=== PATIENT | female | born 1945 | race Hispanic/Latino ===

== ENCOUNTER 2022-04-22 11:52 | Outpatient (CLI) | payer MEDICARE | END 2022-04-22 11:53 | disposition home or self-care (01) | LOC: BICRAD 11:52 | PROVIDERS: ATTEND Student in an Organized Health Care Education/Training Program | DX: M79.89 Other specified soft tissue disorders (principal); M79.671 Pain in right foot; M19.071 Primary osteoarthritis, right ankle and foot; M77.9 Enthesopathy, unspecified; Z98.890 Other specified postprocedural states ==